=== PATIENT | female | born 1945 | race Caucasian/White ===

== ENCOUNTER 2018-01-23 12:00 | Outpatient (CLI) | payer MEDICARE, OTHER ==
[2018-01-23 12:32] LABS: Hemoglobin 12.8 g/dL (12.0-16.0); Mean Corpuscular HGB CONC 33.1 g/dL (32.0-36.0); Mean Corpuscular Hemoglobin 28.5 pg (27.0-31.0); Mean Platelet Volume 8.2 fL (7.4-10.4); Platelet Count 210 thou/uL (130-400); Red Blood Cell (RBC) Count 4.48 mill/uL (4.20-5.40); White Blood Cell (WBC) Count 8.1 thou/uL (4.8-10.8)
[2018-01-23 12:52] LABS: Anion Gap 11 mmol/L (10-20); BUN (Urea Nitrogen) 32 mg/dL (9.8-20.1); Calc. Creatinine Clearance 0 mL/min (70-130); Carbon Dioxide 25 mmol/L (23-31); Chloride 109 mmol/L (98-107); Estimated GFR-MDRD 40; Glucose 112 mg/dL (83-110); Potassium 4.6 mmol/L (3.5-5.1); Sodium 140 mmol/L (136-145)
== END 2018-01-23 12:01 | disposition home or self-care (01) ==
LOC: LABBT 12:00
PROVIDERS: ATTEND Urology
DX: Z01.818 Encounter for other preprocedural examination (principal); N39.41 Urge incontinence
CPT/HCPCS: 80048; 85027

== ENCOUNTER 2018-01-30 08:46 | Day surgery (SDC) | payer MEDICARE, OTHER ==
[2018-01-23 12:22] VITALS: BMI 35.9
[~2018-01-30 08:46] MED LIST: Lidocaine 1% PF 5 ML VIAL ONE; Ondansetron HCl/PF 4 MG/2 ML Vial ONE; PROPOFOL 200 MG/20 ML VIAL ONE
[2018-01-30] MEDS ORDERED: CEFAZOLIN/Water 2 GM/20 ML SYRINGE ONE (09:08)
[2018-01-30] MEDS ORDERED: Bupivacaine 0.25% HCL 30 ML VIAL ONE (09:54)
[2018-01-30] MEDS ORDERED: Lidocaine 1% (PF) 30 ML VIAL ONE (09:56)
[2018-01-30] MEDS ORDERED: Iopamidol 0 ML ONE (09:56)
[2018-01-30] MEDS ORDERED: Fentanyl 100 MCG/2 ML VIAL ONE (10:01)
--- NOTE | 2018-01-30 16:35 | OP ---
DATE OF SERVICE: 01/30/2018. PREOPERATIVE DIAGNOSIS: Stress incontinence. POSTOPERATIVE DIAGNOSIS: Stress incontinence. PROCEDURE PERFORMED: Cystoscopy with urethral bulking agent injection of coaptite. SURGEON: Dr. Ledezma. ANESTHESIA: Monitored anesthesia care with IV sedation and local anesthetic using 10 mL of Marcaine. COMPLICATIONS: No. SPECIMENS: No. DRAINS: Remaining none. ESTIMATED BLOOD LOSS: No. INDICATIONS: The patient is a 72-year-old female who was followed in the office for mixed incontinence specifically bothersome with stress and she had intrinsic sphincter deficiency and set up for urethral bulking. TECHNIQUE: The patient was brought to the room by Anesthesia, lying table in supine position. After receiving IV sedation, her perineum was prepped and draped in a sterile fashion and her legs were in lithotomy. Then a total of 10 mL of Marcaine were injected in a periurethral block, 5 on each side. A 17- Namibian cystoscope entered the urethra and the bladder and inspected the bladder and it was shown to be without lesions and it was pulled back to the bladder neck where the needle was exposed and then retracted the scope back and injected the needle into the left mid urethral space and advanced with a total of 1 mL of coaptite was injected to that area. After waiting for 10 seconds, the needle was removed. This was repeated on the right. The placement was very good, in that it was not too superficial and did not appear to go into the bladder by past-pointing the needle. So with the bladder significantly full, the patient was further awakened and reported a full bladder. Significant cough resulted in no leakage. I filled her up even a little more, and again, no leakage was noted. At this point with a total of 2 mL of coaptite injected, adequate injection was complete. The scope was removed, and a 12-Namibian red rubber catheter was used to drain the bladder. The patient was fully awakened and transferred to the PACU in stable condition. [facility]
== END 2018-01-30 15:05 | disposition home or self-care (01) ==
LOC: SDC 08:46
PROVIDERS: ATTEND Urology
PROC: 0TVD8ZZ Restriction of Urethra, Via Natural or Artificial Opening Endoscopic (ICD-10-PCS; principal; 2018-01-30)
DX: N39.46 Mixed incontinence (principal); R35.1 Nocturia; N81.6 Rectocele; K21.9 Gastro-esophageal reflux disease without esophagitis; E11.9 Type 2 diabetes mellitus without complications; E78.5 Hyperlipidemia, unspecified; I10 Essential (primary) hypertension; Z79.84 Long term (current) use of oral hypoglycemic drugs; Z79.82 Long term (current) use of aspirin; Z79.899 Other long term (current) drug therapy; Z88.4 Allergy status to anesthetic agent; Z88.1 Allergy status to other antibiotic agents; Z88.8 Allergy status to other drugs, medicaments and biological substances
CPT/HCPCS: 51715; L8606; J2001; J2405; J2704; J3010; S0020

== ENCOUNTER 2018-07-19 14:00 | Inpatient (IN) | payer MEDICARE, OTHER ==
[2018-07-19 14:53] VITALS: BMI 37.5
[2018-07-26] MEDS ORDERED: Vancomycin HCl 1.5 GM in Sodium Chloride 0.9% 250 ML 300 ML IVPB SCH (08:00)
[2018-07-26] MEDS ORDERED: Fentanyl 100 MCG/2 ML VIAL ONE (08:12)
[2018-07-26] MEDS ORDERED: Midazolam HCl 2 mg/2 ml Vial ONE (08:12)
[2018-07-26] MEDS ORDERED: Levofloxacin 500 mg/D5W 100 ml Premix Bag ONE (08:33)
[2018-07-26] MEDS ORDERED: Ropivacaine 0.2% 550 ML 550 ML NERVE BLCK SCH (08:50)
[2018-07-26] MEDS ORDERED: Promethazine HCl 25 MG/ML VIAL IM PRN ×2 (08:50→11:38)
[2018-07-26] MEDS ORDERED: Ondansetron PF 4 MG/2 ML Vial IVP PRN ×2 (08:50→11:56)
[2018-07-26] MEDS ORDERED: traMADol HCl 50 MG TAB PO PRN ×4 (08:50→11:56)
[2018-07-26] MEDS ORDERED: Zolpidem Tartrate 5 MG TAB PO PRN (08:50)
[2018-07-26] MEDS ORDERED: Fentanyl 100 MCG/2 ML VIAL IV PRN (08:51)
[2018-07-26] MEDS ORDERED: Promethazine HCl 25 MG/ML VIAL SLOW IVP PRN (11:38)
[2018-07-26] MEDS ORDERED: Ondansetron HCl/PF 4 MG/2 ML Vial IVP PRN (11:38)
--- NOTE | 2018-07-26 11:44 | OP ---
PREOPERATIVE DIAGNOSIS: Painful hardware and failed rotator cuff repair with rotator cuff arthropath y, left shoulder. POSTOPERATIVE DIAGNOSIS: Painful hardware and failed rotator cuff repair with rotator cuff arthropat hy, left shoulder. PROCEDURE: Open reverse total shoulder arthroplasty, open biceps tenodesis and hardware removal of t he left humerus. SURGEON: Oc Mccray M.D. ROLL CLEANER: Palomo Ramirez PA-C. BLOOD LOSS: About 200 mL. SPECIMEN: None. DRAINS: None. COMPLICATIONS: None. IMPLANTS USED: Tornier, [employer] reverse total shoulder, a 0 degree high offset tray with a 6 mm poly and 3B stem of the flex type stem, a convertible stem. The glenosphere was 29 mm baseplate w ith a 26 and 29 locking screw and a 29 bone screw. PROCEDURE IN DETAIL: The patient was taken to the operating where general anesthesia was induced. S he received vancomycin and gentamicin preoperatively due to multiple drug allergies. Left arm was pr epped and draped in the usual sterile fashion. I made a standard deltopectoral approach. Deltopecto ral was very scarred due to previous open surgery. I was able to open up the deltopectoral interval. I got a retractor underneath the conjoint tendon, opened up the subdeltoid bursa and mobilized that as best as possible. There was a great deal of scarring and I took down the subscapularis and tagge d the biceps tendon for later repair. The biceps was amputated at the superior glenoid tubercle. Th e remainder of the rotator cuff was completely gone. I dislocated the shoulder. I had removed 7 scr ews to get a complete cut of the proximal humerus. Once the screws were removed, I cut the proximal humerus. Some of the screws were removed after the humerus was cut, I had to do this sequentially wi th osteotomes to remove the hardware. Stem was broached and a temporary metaphysis protector was gerardo aleida. The glenoid was exposed circumferentially. Labrum was removed. I drilled a hole slightly infe rior to the center. I reamed the glenoid concentrically and removed bone spurs peripherally. I then used a slightly larger drill centrally, placed 29 mm baseplate screws as described. I had good purc hase with three screws, posterior screw was very short and I did not use that. Glenosphere was deplo yed, screw was tightened without difficulty. Went back and sized the metaphysis and the polyethylene as described and this appeared to be stable throughout a range of motion. Trials were removed. Irr igation performed and placed drill holes for cottony Dacron suture. Flex stem was impacted in place along the metaphysis and polyethylene. The shoulder was reduced once again checked for stability. T here was good stability. Subscap was repaired with cottony Dacron suture. Irrigation performed agai n. Deltopectoral was closed with 2-0 Vicryl, the skin was closed with 2-0 Vicryl and danyelle and delicia rile dressings applied. The patient placed in a splint.
[2018-07-26] MEDS ORDERED: Ondansetron ODT 4 MG TAB PO PRN (11:56)
[2018-07-26] MEDS ORDERED: diphenhydrAMINE 50 MG CAP PO PRN (11:56)
[2018-07-26] MEDS ORDERED: Acetaminophen 325 MG TAB PO PRN ×2 (11:56→12:35)
[2018-07-26] MEDS ORDERED: Bisacodyl 10 MG SUPP PR PRN (11:56)
[2018-07-26] MEDS ORDERED: Methocarbamol 1 GM/10 ML VIAL SLOW IVP PRN (11:56)
[2018-07-26] MEDS ORDERED: Milk Of Magnesia 30 ML UDCUP PO PRN (11:56)
[2018-07-26] MEDS ORDERED: Famotidine/PF 20 mg/2ml Vial SLOW IVP SCH (12:00)
[2018-07-26] MEDS ORDERED: Ketorolac Tromethamine 30 MG/ML VIAL IVP SCH ×2 (12:00)
[2018-07-26] MEDS ORDERED: Famotidine 20 MG TAB PO SCH (12:00)
[2018-07-26] MEDS ORDERED: Acetaminophen/Codeine 30-300mg Tablet PO PRN ×2 (12:01)
[2018-07-26] MEDS ORDERED: Ropivacaine 0.5% HCl/PF (150 MG/30 ML VIAL) ONE (13:17)
[2018-07-26] MEDS ORDERED: Ropivacaine 0.2% HCl/PF (40 MG/20 ML VIAL) ONE (13:17)
[2018-07-26] MEDS ORDERED: Vecuronium 10 MG VIAL ONE (14:50)
[2018-07-26] MEDS ORDERED: Glycopyrrolate 0.2 MG/ML 5 ML SYRINGE ONE (14:50)
[2018-07-26] MEDS ORDERED: Ondansetron PF 4 MG/2 ML Vial ONE (14:50)
[2018-07-26] MEDS ORDERED: Dexamethasone 20 MG/5 ML VIAL ONE (14:50)
[2018-07-26] MEDS ORDERED: Lidocaine 1% PF 5 ML VIAL ONE (14:50)
[2018-07-26] MEDS ORDERED: PHENYLEPHRINE-NS 100 MCG/ML 10 ML SYRINGE ONE (14:50)
[2018-07-26] MEDS ORDERED: PROPOFOL 200 MG/20 ML VIAL ONE (14:50)
--- NOTE | 2018-07-26 14:56 | RAD ---
RADIOGRAPH LEFT SHOULDER 1 VIEW: Date: 07/26/18 HISTORY: 73-year-old female with left shoulder pain, status post surgery. FINDINGS: The modoc humeral head has been surgically resected. There is a metallic prosthesis anchored to the glenoid by screws. This articulates with another metallic prosthesis component with stem that reaches the proximal humeral metadiaphysis. There are skin danyelle. IMPRESSION: Status post total left shoulder glenohumeral joint replacement arthroplasty. POS: [facility]
[2018-07-26] MEDS: Acetaminophen 500 MG TAB PO SCH ×3 (15:07→23:07)
[2018-07-26] MEDS: Ketorolac Tromethamine 30 MG/ML VIAL IVP SCH ×2 (15:15→21:03)
[2018-07-26] MEDS: Sodium Chloride 0.9% 1,000 ML IV SCH (15:18)
[2018-07-26] MEDS ORDERED: Aspirin 81 mg Enteric Coated Tablet PO SCH (21:00)
[2018-07-26] MEDS ORDERED: Vancomycin HCl 1 GM in Premix Bag 1 BAG IVPB SCH (21:00)
[2018-07-26] MEDS: Famotidine 20 MG TAB PO SCH (21:02)
[2018-07-26] MEDS: Famotidine/PF 20 mg/2ml Vial SLOW IVP SCH (21:03)
[2018-07-26] MEDS ORDERED: Insulin Regular 300 UNITS/3 ML VIAL SC PRN (22:45)
[2018-07-26] MEDS ORDERED: Dextrose 50% Abboject 50 ML SYRINGE IVP PRN (22:45)
[2018-07-26] MEDS ORDERED: Dextrose 5% in Water 1,000 ML IV PRN (22:45)
[2018-07-27] MEDS: Sodium Chloride 0.9% 1,000 ML IV SCH (03:36)
[2018-07-27] MEDS: Acetaminophen 500 MG TAB PO SCH ×2 (06:00→13:00)
[2018-07-27] MEDS: Ketorolac Tromethamine 30 MG/ML VIAL IVP SCH (06:01)
[2018-07-27] MEDS ORDERED: Fluticasone Propionate Nasal Spray 16 gm Bottle NASAL PRN (07:30)
[2018-07-27] MEDS ORDERED: metFORMIN 500 MG TAB PO SCH ×2 (08:00→17:00)
[2018-07-27] MEDS ORDERED: Pregabalin 75 MG CAP PO SCH (09:00)
[2018-07-27] MEDS ORDERED: Multivit, Therapeutic 1 TAB PO SCH (09:00)
[2018-07-27] MEDS ORDERED: Hydrochlorothiazide 25 MG TAB PO SCH (09:00)
[2018-07-27] MEDS ORDERED: diphenhydrAMINE 25 MG CAP PO SCH (09:00)
[2018-07-27] MEDS ORDERED: Aspirin 325 mg Enteric Coated Tablet PO SCH (09:00)
[2018-07-27] MEDS: Famotidine 20 MG TAB PO SCH (09:02)
[2018-07-27] MEDS: Famotidine/PF 20 mg/2ml Vial SLOW IVP SCH (09:06)
--- NOTE | 2018-07-27 10:58 | CON ---
DATE OF CONSULTATION: 07/27/2018. CONSULTING PHYSICIAN: Dr. Mccray. REASON FOR CONSULTATION: Medical management of diabetes, heart disease perioperatively. HISTORY OF PRESENT ILLNESS: This patient is a 73-year-old female who has had a couple of prior rotator cuff surgeries with some chronic pain and hardware issues. She has subsequently come back and had reversed hemiarthroplasty of the left shoulder. The patient states she is actually doing well today. She reports that she is actually having less pain and her rotator cuff surgeries are thus far. She did have an episode of high blood sugar overnight and did ultimately receive a dose of insulin and blood sugars are better this morning. The patient does report a minor cough, which I witnessed during our conversation. She states that it is simply some mild irritation of her throat from the surgery. It is nonproductive. PAST MEDICAL HISTORY: Notable for diabetes mellitus, hypertension, hyperlipidemia, coronary artery disease, and sleep apnea on CPAP. PAST SURGICAL HISTORY: Urethral bulking, left knee arthroplasty, back surgery x3, right knee arthroplasty, rotator cuff, left shoulder x2, total abdominal hysterectomy. FAMILY HISTORY: Father had a heart attack and at 63. Mother at 42 with apparent childbirth complications. SOCIAL HISTORY: The patient is a nonsmoker, nondrug user. She is . ALLERGIES: CEFACLOR, HYDROCODONE, BACTRIM, LEVAQUIN, LIDOCAINE. CURRENT MEDICATIONS: At home include, Lansoprazole 30 mg every day, Synthroid 100 mcg every day, Zetia 10 mg every day, metformin 1000 mg b.i.d., calcium 500 mg every day, Lyrica 150 mg b.i.d., Hydrochlorothiazide 12.5 every day, aspirin 325 every day, Lipitor 40 mg every day, Nasonex spray 2 spray daily in each nostril, Benicar 20 mg daily, magnesium oxide 400 mg 1 p.o. daily. PHYSICAL EXAMINATION: VITAL SIGNS: Temperature 98.2, pulse 80, respirations 16, O2 sat 91% on room air, blood pressure is 129/74. GENERAL APPEARANCE: Age appropriate female, slightly obese. She is in no distress. She is awake, alert, oriented, pleasant, cooperative. CARDIOVASCULAR: Heart is regular rate and rhythm without murmurs, gallops or rubs. LUNGS: Clear to auscultation bilaterally. ABDOMEN: Soft, nontender, nondistended, positive bowel sounds, no masses, no organomegaly. EXTREMITIES: Left upper extremity is in a sling. Lower extremities have sequential compression devices in place and there is no significant edema. LABORATORY DATA: Blood sugar last night was 307, this morning 139. Lab work done on 07/19/2018 reveals a creatinine of 1.3, which is consistent with her baseline giving a GFR of 40. Hemoglobin A1c in February was 6.5 and a CBC was normal. ASSESSMENT AND PLAN: 1. Status post left shoulder hemiarthroplasty, doing well. Continue postop orders per Ortho. 2. Diabetes mellitus. We will resume the patient's metformin. She has sliding scale in place. We will change her diet to carb consistent and q.a.c. and at bedtime Accu-Cheks. 3. Hypothyroidism. We will continue with her usual home medication regimen including the levothyroxine at 100 mcg p.o. daily. 4. Hyperlipidemia. Continue the atorvastatin and Zetia. 5. Hypertension. Continue the Benicar and hydrochlorothiazide. 6. Mild cough, appears to be relatively benign. Continue to monitor. MTDD
[2018-07-27 11:32] VITALS: BP 123/77; TEMP 97.9
[2018-07-27] MEDS ORDERED: Ezetimibe 10 MG TAB PO SCH (21:00)
[2018-07-27] MEDS ORDERED: Magnesium Oxide 400 MG TAB PO SCH (21:00)
[2018-07-27] MEDS ORDERED: Atorvastatin Calcium 40 MG TAB PO SCH (21:00)
[2018-07-27] MEDS ORDERED: Calcium Carbonate + Vit D 1 TAB PO SCH (21:00)
[2018-07-28] MEDS ORDERED: Levothyroxine Sodium 100 MCG TAB PO SCH (06:00)
--- NOTE | 2018-07-30 14:20 | DIS ---
DATE OF ADMISSION: 07/26/2018 DATE OF DISCHARGE: 07/27/2018 POSTOPERATIVE DIAGNOSIS: Painful hardware and failed rotator cuff repair with rotator cuff arthropat hy of left shoulder. POSTOPERATIVE DIAGNOSIS: Painful hardware and failed rotator cuff repair with rotator cuff arthropat hy of left shoulder. PROCEDURE: The patient underwent an open reverse total shoulder arthroplasty, biceps tenodesis and h ardware removal of the left humerus. HOSPITAL COURSE: Hospital stay is grossly unremarkable. The patient left the next day. DISCHARGE CONDITION: Good/stable. DISPOSITION: Home with family. FOLLOWUP: Followup would be in 10-14 days or sooner if there are problems or concerns. DISCHARGE MEDICATIONS: Given with usage instructions.
== END 2018-07-27 14:37 | disposition home or self-care (01) | DRG 483 ==
LOC: SURG A 07-26 07:36
PROVIDERS: ADMIT Orthopaedic Surgery; ATTEND Orthopaedic Surgery
PROC: 0RRK00Z Replacement of Left Shoulder Joint with Reverse Ball and Socket Synthetic Substitute, Open Approach (ICD-10-PCS; principal; 2018-07-26)
PROC: 0PPD04Z Removal of Internal Fixation Device from Left Humeral Head, Open Approach (ICD-10-PCS; 2018-07-26)
DX: T84.84XA Pain due to internal orthopedic prosthetic devices, implants and grafts, initial encounter (principal); M12.812 Other specific arthropathies, not elsewhere classified, left shoulder; E11.9 Type 2 diabetes mellitus without complications; G47.30 Sleep apnea, unspecified; K21.9 Gastro-esophageal reflux disease without esophagitis; I10 Essential (primary) hypertension; E78.5 Hyperlipidemia, unspecified; E03.9 Hypothyroidism, unspecified; Z96.653 Presence of artificial knee joint, bilateral; Z88.1 Allergy status to other antibiotic agents; Z88.5 Allergy status to narcotic agent; Z88.8 Allergy status to other drugs, medicaments and biological substances; Z79.84 Long term (current) use of oral hypoglycemic drugs; Z79.82 Long term (current) use of aspirin; Z79.899 Other long term (current) drug therapy
CPT/HCPCS: 36416; A4306; G8978-GP-CK; G8979-GP-CJ; J1100; J1885; J1956; J2001; J2250; J2405; J2704; J2795; J3010; J3370; J7050; S0028

== ENCOUNTER 2018-07-19 14:05 | Outpatient (CLI) | payer MEDICARE, OTHER ==
[2018-07-19 15:55] LABS: #Basophils 0.1 thou/uL (0.0-0.2); #Eosinphils 0.4 thou/uL (0.0-0.7); #Lymphocytes 2.2 thou/uL (1.20-3.40); #Monocytes 0.7 thou/uL (0.11-0.59); #Neutrophils 4.2 thou/uL (1.40-6.50); %Basophils 0.9 % (0.0-1.0); %Eosinophils 5.2 % (0.0-10.0); %Lymphocytes 29.4 % (21.0-51.0); %Monocytes 9.8 % (0.0-10.0); %Neutrophils 54.8 % (42.0-75.0); Hemoglobin 12.5 g/dL (12.0-16.0); Mean Corpuscular HGB CONC 33.4 g/dL (32.0-36.0); Mean Corpuscular Hemoglobin 29.6 pg (27.0-31.0); Mean Corpuscular Volume 88.7 fL (78.0-98.0); Mean Platelet Volume 8.8 fL (7.4-10.4); Platelet Count 223 thou/uL (130-400); RBC Distribution Width 12.9 % (11.5-14.5); White Blood Cell (WBC) Count 7.6 thou/uL (4.8-10.8)
[2018-07-19 16:00] LABS: PTT 29.8 SEC (22.9-36.1); Prothrombin Time 13.4 SEC (12.0-14.7)
[2018-07-19 16:07] LABS: Bilirubin Negative (Negative); Blood, Urine Negative (Negative); Clarity CLEAR (Clear); Glucose, Urine (Dipstick) Negative (Negative); Leukocyte Small (Negative); Nitrite Negative (Negative); Protein, Urine (Dipstick) Negative (Neg-Trace); Specific Gravity, Urine 1.019 (1.002-1.036); Urobilinogen 0.2 mg/dL (0.2-1.0)
[2018-07-19 16:09] LABS: Bacteria/HPF None Seen HPF (None Seen); Hyaline Casts/LPF 0-3 HYALINE CAST LPF (0-3 Hyaline); Pathc Cast-AUWi Flag 0.14 (0-2.49); RBC/HPF 0-3 HPF (0-3); Squamous Epithelial 0-3 HPF (0-3); WBC/HPF 0-3 HPF (0-3)
[2018-07-19 16:14] LABS: Anion Gap 13 mmol/L (10-20); BUN (Urea Nitrogen) 25 mg/dL (9.8-20.1); Calc. Creatinine Clearance 0 mL/min (70-130); Calcium 9.8 mg/dL (7.8-10.44); Carbon Dioxide 25 mmol/L (23-31); Chloride 106 mmol/L (98-107); Estimated GFR-MDRD 40; Glucose 109 mg/dL (83-110); Potassium 4.5 mmol/L (3.5-5.1); Sodium 139 mmol/L (136-145)
--- NOTE | 2018-07-19 17:48 | RAD ---
CHEST PA AND LATERAL TWO VIEWS: 07/19/18 HISTORY: 63-year-old female for presurgical evaluation for 07/26/18. Minimal linear parenchymal changes in the lung bases and lower lobes near from prior 2011 study, hav ing more the appearance of chronic change or minimal subsegmental atelectasis. Heart size is within n ormal limits. Multiple surgical changes involving both shoulders. No confluent pneumonia or overt ed yessenia. IMPRESSION: Horizontal linear and parenchymal changes in both lower lobes and bases having more the appearance of subsegmental atelectasis or chronic change. No pneumothorax or pleural effusion or other acute proce ss. Atherosclerosis of the aorta. POS: [facility]
--- NOTE | 2018-07-20 16:35 | EKG ---
Test Reason : Blood Pressure : / mmHG Vent. Rate : 068 BPM Atrial Rate : 068 BPM P-R Int : 216 ms QRS Dur : 086 ms QT Int : 398 ms P-R-T Axes : 045 042 035 degrees QTc Int : 423 ms Sinus rhythm with 1st degree A-V block Low voltage QRS Cannot rule out Anterior infarct , age undetermined Abnormal ECG When compared with ECG of 03-AUG-2011 11:58, Minimal criteria for Anterior infarct are now Present Confirmed by DR. Toshia GALARZA ([id number]) on 07/20/2018 4:35:28 PM Referred By: RONEY Confirmed By:DR. Toshia GALARZA
== END 2018-07-19 14:06 | disposition home or self-care (01) ==
LOC: LABBT 14:05
PROVIDERS: ATTEND Orthopaedic Surgery
DX: Z01.818 Encounter for other preprocedural examination (principal); M19.012 Primary osteoarthritis, left shoulder; M75.102 Unspecified rotator cuff tear or rupture of left shoulder, not specified as traumatic
CPT/HCPCS: 71046; 80048; 81001; 85025; 85610; 85730; 87081; 93005; 93010

== ENCOUNTER 2019-06-25 10:53 | Outpatient (CLI) | payer MEDICARE, OTHER ==
--- NOTE | 2019-06-25 11:36 | RAD ---
LUMBAR SPINE 2 VIEWS: HISTORY: Lumbar fusion. FINDINGS: Five lumbar-type vertebral bodies. Severe loss of disk space height at L1-L2 and L2-L3. There is di sk prosthesis at L3-L4, L4-L5, and L5-S1. There is diffuse bone demineralization. No definite fract ure. Spondylolisthesis: 3.8 mm of retrolisthesis of L2 upon L3, 3.7 mm anterolisthesis of anterolisthesis of L4 upon L5, 4.2 mm anterolisthesis of L5 upon S1. There are bilateral transpedicular screws at t he S1 level. There appears to be perihardware lucency involving the left screw. Posterior bone levi t material is suspected at L3, L4, and L5. Atherosclerosis of the aorta is noted. IMPRESSION: 1. Spondylolisthesis and fusion changes as above. 2. Severe degenerative change with loss of disk space height involving the upper lumbar spine. POS: [facility]
== END 2019-06-25 10:54 | disposition home or self-care (01) ==
LOC: TBSIIMAG 10:53
PROVIDERS: ATTEND Neurological Surgery
DX: M54.5 Low back pain (principal); M43.16 Spondylolisthesis, lumbar region; M47.816 Spondylosis without myelopathy or radiculopathy, lumbar region; Z98.1 Arthrodesis status
CPT/HCPCS: 72100

== ENCOUNTER 2019-07-10 07:24 | Day surgery (SDC) | payer MEDICARE, OTHER ==
[2019-07-10 08:48] VITALS: BMI 36.6
--- NOTE | 2019-07-10 09:48 | RAD ---
LUMBAR MYELOGRAM: HISTORY: Lumbar radiculopathy. FINDINGS: Two view service desk director lumbar spine radiograph demonstrates five lumbar type vertebrae. Lumbar spine vertebra l body height is maintained. No fracture. Disc prostheses at L3-L4, L4-L5 and L5-S1. Bilateral transpedicular screws at S1. There does appear to be perihardware lucency involving both transpedicul ar screws. Hypertrophy and bone graft material is noted from L3 through L5. Vacuum disc phenomenon at L1-L2 and L2-L3. Endplate sclerosis and osteophyte formation is noted. No fracture. Spondylolisthesis: Grade 1 retrolisthesis of L1 upon L2. Grade 1 retrolisthesis of L3 upon L4. Grade 1 anterolisthesis of L4 upon L5. Grade 1 anterolisthesis of L5 upon S1. Atherosclerosis of the aorta. Successful lumbar puncture. A total of 9 cc of Isovue-M 200 contrast was administered intrathecally. No immediate or post procedure complications. TECHNIQUE: Consent obtained to perform a lumbar puncture for lumbar myelogram. The patient's back was evaluated. Initially the L3-L4 level was attempted. However access into the CSF space could not be obtained. Therefore an attempt at the L4-L5 level was made which was successful. There was prompt flow of clear CSF into the hub of the needle. Via a short tubing catheter a total of 9 cc of Isovue-M 200 contrast was administered intrathecally. No immediate or post procedure complications. IMPRESSION: Successful lumbar puncture for lumbar myelogram. Transcribed Date/Time: 07/10/2019 9:59 AM
[2019-07-10 10:13] VITALS: BP 159/80; TEMP 97.8
--- NOTE | 2019-07-10 11:23 | CT ---
CT LUMBAR SPINE POST MYELOGRAM: HISTORY: Lumbar radiculopathy. COMPARISON: None. CORRELATION: Noncontrast lumbar spine CT from 04/16/2014. FINDINGS: There are tracks from previous bilateral transpedicular screws at L4 and L5. There are bilateral barboza spedicular screws at S1. No significant perihardware lucency. There is extensive posterior bone graft material, left and right posterior elements, from L4 through S1. Five lumbar type vertebrae. Allegra mbar spine vertebral body height is maintained. No fracture. Vacuum disc phenomenon at T10-T11 through L2-L3. Endplate sclerosis at L1-L2 and L2-L3 is noted. Disc prostheses at L3-L4, L4-L5 and L5 -S1. Spondylolisthesis: L1-L2: 3.3 mm of retrolisthesis L2-L3: 2.4 mm of retrolisthesis L5-S1: 6.7 mm of anterolisthesis Appropriate attenuation of the visualized solid organs. Hypodensities in the liver are compatible wit h hepatic cysts. No paraspinal mass, lymphadenopathy or hematoma. Atherosclerosis of a nonaneurysmal aorta. The conus medullaris terminates at the mid L1 level. Coronal reformatted images demonstrate no significant scoliotic curvature. The visualized sacral ala are intact. Vacuum joint phenomenon in the left and right sacroiliac joint space. T10-T11: Moderate central canal stenosis secondary to a broad based disc bulge and posterior element hypertrophy. Moderate bilateral neural foraminal narrowing. T11-T12: Broad based disc bulge, ligamentum flavum thickening and facet hypertrophy result in moderat e central canal stenosis. Moderate bilateral neural foraminal narrowing. T12-L1: Broad based disc bulge results in mild central canal stenosis. Mild to moderate bilateral ford ral foraminal narrowing. L1-L2: Vacuum disc phenomenon. Left subarticular disc protrusion. There is contact upon and displacem ent of the traversing left L2 nerve root. Mild stenosis of the thecal sac. Moderate to severe right and severe left neural foraminal narrowing. L2-L3: Vacuum disc phenomenon. Broad based disc bulge, ligamentum flavum thickening and facet hypertr ophy result in moderate central canal stenosis. Moderate to severe bilateral neural foraminal narrowing. L3-L4: Disc prosthesis. Mild narrowing of the left subarticular zone. No significant central canal st enosis. Moderate right neural foraminal narrowing. Mild to moderate left neural foraminal narrowing. L4-L5: Disc prosthesis. No significant central canal stenosis. Bilaterally neural foramina are patent . L5-S1: Disc prosthesis. No significant central canal stenosis. Bilaterally neural foramina are patent . IMPRESSION: Post surgical changes and degenerative changes of the lumbar spine as detailed above. Transcribed Date/Time: 07/10/2019 11:32 AM
[2019-07-10] MEDS ORDERED: FLU VACC TS2019-20(65YR UP)/PF 180 MCG/0.5 ML SYRINGE IM ONE (12:00)
== END 2019-07-10 10:01 | disposition home or self-care (01) ==
LOC: RAD 07:24
PROVIDERS: ATTEND Neurological Surgery
PROC: B01B1ZZ Fluoroscopy of Spinal Cord using Low Osmolar Contrast (ICD-10-PCS; principal; 2019-07-10)
DX: M54.16 Radiculopathy, lumbar region (principal); M48.04 Spinal stenosis, thoracic region; M48.05 Spinal stenosis, thoracolumbar region; M48.061 Spinal stenosis, lumbar region without neurogenic claudication; G47.33 Obstructive sleep apnea (adult) (pediatric); E11.9 Type 2 diabetes mellitus without complications; I10 Essential (primary) hypertension; I25.10 Atherosclerotic heart disease of native coronary artery without angina pectoris; E78.5 Hyperlipidemia, unspecified; Z79.82 Long term (current) use of aspirin; Z79.899 Other long term (current) drug therapy; Z88.1 Allergy status to other antibiotic agents; Z88.2 Allergy status to sulfonamides; Z88.5 Allergy status to narcotic agent; Z88.8 Allergy status to other drugs, medicaments and biological substances; Z98.1 Arthrodesis status; Z99.89 Dependence on other enabling machines and devices
CPT/HCPCS: 62304; 72132

== ENCOUNTER 2021-04-26 11:37 | Outpatient (CLI) | payer MEDICARE | END 2021-04-26 11:38 | disposition home or self-care (01) | LOC: BICMAMMO 11:37 | PROVIDERS: ATTEND Family Medicine | DX: Z12.31 Encounter for screening mammogram for malignant neoplasm of breast (principal) | CPT/HCPCS: 77063; 77067 ==

== ENCOUNTER 2021-09-06 10:13 | Outpatient (CLI) | payer MEDICARE ==
[2021-09-06 11:38] LABS: #Basophils 0.1 10x3/uL (0.0-0.2); #Eosinphils 0.4 10x3/uL (0.0-0.5); #Monocytes 0.7 10x3/uL (0.0-1.1); #Neutrophils 4.4 10x3/uL (1.5-8.4); %Basophils 0.6 % (0.0-2.0); %Eosinophils 4.5 % (0.0-6.0); %Lymphocytes 27.5 % (18.0-47.0); %Monocytes 9.3 % (0.0-10.0); %Neutrophils 57.5 % (40.0-75.0); Hemoglobin 12.4 g/dL (12.0-15.5); Mean Corpuscular Hemoglobin 27.9 pg (27.0-33.0); Mean Corpuscular Volume 87.4 fl (81.6-98.3); Mean Platelet Volume 10.8 fl (7.4-10.4); Platelet Count 220 10x3/uL (150-450); RBC Distribution Width 13.7 % (11.5-14.5); Red Blood Cell (RBC) Count 4.44 10x6/uL (3.90-5.03); White Blood Cell (WBC) Count 7.7 10x3/uL (3.5-10.5)
[2021-09-06 11:52] LABS: Anion Gap 11 mmol/L (10-20); BUN (Urea Nitrogen) 18 mg/dL (9.8-20.1); Calc. Creatinine Clearance 0 mL/min (70-130); Calcium 9.4 mg/dL (7.8-10.44); Carbon Dioxide 26 mmol/L (23-31); Chloride 106 mmol/L (98-107); Glucose 105 mg/dL (83-110); Potassium 4.4 mmol/L (3.5-5.1); Sodium 139 mmol/L (136-145)
[2021-09-06 22:25] LABS: SARS-CoV-2 PCR by NAA Not Detected (NotDetected)
== END 2021-09-06 10:14 | disposition home or self-care (01) ==
LOC: LABBT 10:13
PROVIDERS: ATTEND Orthopaedic Surgery
DX: Z01.818 Encounter for other preprocedural examination (principal); Z20.822 Contact with and (suspected) exposure to COVID-19
CPT/HCPCS: 80048; 85025; 93005; U0003; U0005; 93010

== ENCOUNTER 2021-09-09 06:06 | Observation (INO) | payer MEDICARE ==
[2021-09-09] MEDS ORDERED: Tranexamic Acid 1,000 MG/10 ML VIAL ONE (06:26)
[2021-09-09] MEDS ORDERED: Sodium Chloride 0.9% 100 ML ONE (06:26)
[2021-09-09] MEDS ORDERED: Gentamicin 80 MG/2 ML VIAL ONE (06:26)
[2021-09-09] MEDS ORDERED: Fentanyl 100 MCG/2 ML VIAL ONE ×2 (06:35→07:45)
[2021-09-09] MEDS ORDERED: Midazolam HCl 2 mg/2 ml Vial ONE (06:35)
[2021-09-09] MEDS ORDERED: Lidocaine 1% (PF) 30 ML VIAL ONE (06:35)
[2021-09-09] MEDS ORDERED: Vancomycin 1.5 GRAM/300 ML BAG 1.5 GM in Premix Bag 1 BAG IVPB SCH (06:45)
[2021-09-09] MEDS ORDERED: Gentamicin Sulfate 80 MG in Premix Bag 1 BAG IVPB SCH (07:15)
[2021-09-09] MEDS ORDERED: Glycopyrrolate 0.2 MG/ML 5 ML SYRINGE ONE (07:53)
[2021-09-09] MEDS ORDERED: Lidocaine 1% PF 5 ML VIAL ONE (07:53)
[2021-09-09] MEDS ORDERED: Dexamethasone 20 MG/5 ML VIAL ONE (07:53)
[2021-09-09] MEDS ORDERED: Ropivacaine 0.5% HCl/PF (150 MG/30 ML VIAL) ONE (07:53)
[2021-09-09] MEDS ORDERED: PROPOFOL 200 MG/20 ML VIAL ONE (07:53)
[2021-09-09] MEDS ORDERED: Ketorolac Tromethamine 30 MG/ML VIAL ONE (07:53)
[2021-09-09] MEDS ORDERED: Rocuronium Bromide 10 MG/ML (10ML VIAL) ONE (07:53)
[2021-09-09] MEDS ORDERED: Ondansetron PF 4 MG/2 ML Vial ONE (07:53)
[2021-09-09] MEDS ORDERED: Ropivacaine 2% HCl/PF (20 MG/10 ML VIAL) ONE (07:53)
[2021-09-09] MEDS ORDERED: traMADol HCl 50 MG TAB PO PRN ×4 (07:55→08:00)
[2021-09-09] MEDS ORDERED: oxyCODONE/Acetaminophen 5 mg/325 mg Tablet PO PRN ×2 (07:58)
[2021-09-09] MEDS ORDERED: diphenhydrAMINE 25 MG CAP PO PRN (07:58)
[2021-09-09] MEDS ORDERED: Zolpidem Tartrate 5 MG TAB PO PRN (08:00)
[2021-09-09] MEDS ORDERED: Fentanyl 100 MCG/2 ML VIAL SLOW IVP PRN (08:00)
[2021-09-09] MEDS ORDERED: Ondansetron PF 4 MG/2 ML Vial IVP PRN (08:00)
[2021-09-09] MEDS ORDERED: Promethazine HCl 25 MG/ML VIAL IM PRN ×2 (08:00→08:59)
[2021-09-09] MEDS ORDERED: Ropivacaine 0.2% 550 ML 550 ML NERVE BLCK SCH (08:00)
[2021-09-09] MEDS ORDERED: Phenylephrine 10 MG/ML VIAL ONE (08:11)
[2021-09-09] MEDS ORDERED: Promethazine HCl 25 MG/ML VIAL IVPB PRN (08:59)
[2021-09-09] MEDS ORDERED: PACU-Morphine 4MG/ML VIAL SLOW IVP PRN (08:59)
[2021-09-09] MEDS ORDERED: Dulaglutide [Trulicity] 1.5 MG/0.5 ML Pen.Injctr SC SCH (09:00)
[2021-09-09] MEDS: Losartan 25 MG TAB PO SCH (15:08)
[2021-09-09] MEDS: Aspirin 325 mg Enteric Coated Tablet PO SCH (15:08)
[2021-09-09] MEDS: Pregabalin 75 MG CAP PO SCH ×2 (15:08→21:23)
[2021-09-09] MEDS: Sodium Chloride 0.9% 1,000 ML IV SCH (15:08)
[2021-09-09] MEDS: Ketorolac Tromethamine 30 MG/ML VIAL IVP SCH ×2 (15:09→17:19)
[2021-09-09 15:12] VITALS: BMI 32.7
[2021-09-09] MEDS ORDERED: Vancomycin HCl 1.5 GM in Sodium Chloride 0.9% 250 ML 300 ML IVPB SCH (20:00)
[2021-09-09] MEDS ORDERED: Ezetimibe 10 MG TAB PO SCH (21:00)
[2021-09-09] MEDS ORDERED: Calcium Carbonate 600 MG + Vit D TAB PO SCH (21:00)
[2021-09-09] MEDS ORDERED: Magnesium Oxide 400 MG TAB PO SCH (21:00)
[2021-09-09] MEDS ORDERED: Atorvastatin Calcium 40 MG TAB PO SCH (21:00)
[2021-09-10] MEDS: Sodium Chloride 0.9% 1,000 ML IV SCH (00:51)
[2021-09-10] MEDS: Ketorolac Tromethamine 30 MG/ML VIAL IVP SCH ×3 (00:51→12:05)
[2021-09-10] MEDS ORDERED: Levothyroxine Sodium 100 MCG TAB PO SCH (06:00)
[2021-09-10] MEDS: Pregabalin 75 MG CAP PO SCH (08:39)
[2021-09-10] MEDS: Losartan 25 MG TAB PO SCH (08:39)
[2021-09-10] MEDS: Aspirin 325 mg Enteric Coated Tablet PO SCH (08:39)
[2021-09-10 12:41] VITALS: BP 132/73; TEMP 97.8
== END 2021-09-10 14:28 | disposition home or self-care (01) ==
LOC: SDC 06:06 → SJJU 08:00
PROVIDERS: ADMIT Orthopaedic Surgery; ATTEND Orthopaedic Surgery
PROC: 0RRJ00Z Replacement of Right Shoulder Joint with Reverse Ball and Socket Synthetic Substitute, Open Approach (ICD-10-PCS; principal; 2021-09-09)
PROC: 3E0T3BZ Introduction of Anesthetic Agent into Peripheral Nerves and Plexi, Percutaneous Approach (ICD-10-PCS; 2021-09-09)
DX: M12.811 Other specific arthropathies, not elsewhere classified, right shoulder (principal); E11.9 Type 2 diabetes mellitus without complications; G47.30 Sleep apnea, unspecified; K21.9 Gastro-esophageal reflux disease without esophagitis; I10 Essential (primary) hypertension; E78.5 Hyperlipidemia, unspecified; Z79.82 Long term (current) use of aspirin; Z79.84 Long term (current) use of oral hypoglycemic drugs; Z79.899 Other long term (current) drug therapy; Z88.1 Allergy status to other antibiotic agents; Z88.2 Allergy status to sulfonamides; Z88.5 Allergy status to narcotic agent; Z88.8 Allergy status to other drugs, medicaments and biological substances; Z91.048 Other nonmedicinal substance allergy status; Z96.653 Presence of artificial knee joint, bilateral; Z98.890 Other specified postprocedural states
CPT/HCPCS: 23472; 64416; 97110; 97116 ×2; 97139; 97530 ×2; 98960; A4306; C1713 ×5; C1776 ×2; C1889; 96365; 96366; 96375; 96376; G0378; J1100; J1580; J1885; J2001; J2250; J2370; J2405; J2704; J2795; J3010; J3370; J3490; J7050

== ENCOUNTER 2023-06-01 17:00 | Outpatient (CLI) | payer MEDICARE | END 2023-06-01 17:01 | disposition home or self-care (01) | LOC: SLEEPLAB 17:00 | PROVIDERS: ATTEND Internal Medicine Critical Care Medicine | DX: G47.33 Obstructive sleep apnea (adult) (pediatric) (principal); R06.83 Snoring; G47.10 Hypersomnia, unspecified; I10 Essential (primary) hypertension; G47.00 Insomnia, unspecified; G47.52 REM sleep behavior disorder | CPT/HCPCS: 95810 ==

== ENCOUNTER 2023-09-26 09:30 | Inpatient (IN) | payer MEDICARE ==
[2023-09-27 14:46] LABS: Hematocrit 37.3 % (34.9-44.5); Hemoglobin 12.4 g/dL (12.0-15.5); Mean Corpuscular HGB CONC 33.2 g/dL (32.0-36.0); Mean Corpuscular Hemoglobin 29.7 pg (27.0-33.0); Mean Corpuscular Volume 89.4 fl (81.6-98.3); Mean Platelet Volume 11.3 fl (7.4-10.4); Platelet Count 230 10x3/uL (150-450); RBC Distribution Width 12.9 % (11.5-14.5); Red Blood Cell (RBC) Count 4.17 10x6/uL (3.90-5.03); White Blood Cell (WBC) Count 6.7 10x3/uL (3.5-10.5)
[2023-09-27 14:58] LABS: Anion Gap 14 mmol/L (10-20); BUN (Urea Nitrogen) 17 mg/dL (9.8-20.1); Calc. Creatinine Clearance 0 mL/min (70-130); Calcium 9.2 mg/dL (7.8-10.44); Carbon Dioxide 22 mmol/L (23-31); Chloride 109 mmol/L (98-107); Estimated GFR 43; Glucose 108 mg/dL (83-110); Potassium 4.2 mmol/L (3.5-5.1); Sodium 141 mmol/L (136-145)
[2023-10-05] MEDS ORDERED: Albumin 5% 500 ML ONE (06:20)
[2023-10-05] MEDS ORDERED: Fentanyl 250 MCG/5 ML VIAL ONE ×2 (06:22→09:09)
[2023-10-05] MEDS ORDERED: Midazolam HCl 2 mg/2 ml Vial ONE ×2 (06:22)
[2023-10-05] MEDS ORDERED: Heparin 10,000 UNITS/1 ML VIAL 30,000 UNITS in Sodium Chloride 0.9% 1,000 ML FS SCH (06:45)
[2023-10-05] MEDS ORDERED: Sodium Chloride 0.9% 0 ML ONE (07:14)
[2023-10-05] MEDS ORDERED: Gentamicin 80 MG/2 ML VIAL ONE (07:14)
[2023-10-05] MEDS ORDERED: Vancomycin (BATCH) 1.5 GM/300 ML BAG ONE (07:14)
[2023-10-05] MEDS ORDERED: Sodium Bicarb 50 mEq/50 ML VIAL ONE (07:42)
[2023-10-05] MEDS ORDERED: Heparin 30,000 units/30 ml VIAL ONE (07:42)
[2023-10-05] MEDS ORDERED: Etomidate 40 MG (20 mL) VIAL ONE (07:42)
[2023-10-05] MEDS ORDERED: Lidocaine 2% PF 100 mg/5 ml Syringe ONE (07:42)
[2023-10-05] MEDS ORDERED: Cardioplegic Soln 1,000 ML BAG ONE (07:42)
[2023-10-05] MEDS ORDERED: Vancomycin 1 GM VIAL ONE (07:42)
[2023-10-05] MEDS ORDERED: Thrombin 5000 UNITS/5 ML VIAL ONE (07:42)
[2023-10-05] MEDS ORDERED: Vecuronium 10 MG VIAL ONE (07:42)
[2023-10-05] MEDS ORDERED: Aminocaproic Acid 5 GM/20 ML VIAL ONE (07:42)
[2023-10-05] MEDS ORDERED: Potassium Chloride 60 mEq (30 mL) VIAL ONE (07:42)
[2023-10-05] MEDS ORDERED: Magnesium 5 GM/10 ML VIAL ONE (07:42)
[2023-10-05] MEDS ORDERED: Heparin 5,000 UNITS/ML VIAL ONE (07:42)
[2023-10-05] MEDS ORDERED: Protamine Sulfate 250 MG/25 ML VIAL ONE (07:42)
[2023-10-05] MEDS ORDERED: Papaverine 60 MG/2 ML VIAL ONE (07:42)
[2023-10-05] MEDS ORDERED: Mannitol 12.5 GM/50 ML ONE (07:42)
[2023-10-05] MEDS ORDERED: Calcium Chloride 1 GM/10 ML Abboject SYRINGE ONE (07:42)
[2023-10-05] MEDS ORDERED: PROPOFOL 20 ML ONE (08:08)
[2023-10-05] MEDS ORDERED: Rocuronium Bromide 10 MG/ML (10ML VIAL) ONE (09:12)
[2023-10-05] MEDS ORDERED: PHENYLEPHRINE-NS 100 MCG/ML 10 ML SYRINGE ONE (10:35)
[2023-10-05] MEDS ORDERED: Post-Op Insulin Drip Protocol IVPB SCH (11:26)
[2023-10-05] MEDS ORDERED: Ondansetron PF 4 MG/2 ML Vial IVP PRN (11:26)
[2023-10-05] MEDS ORDERED: fentaNYL 50 mcg/mL 1 mL Vial SLOW IVP PRN ×2 (11:26)
[2023-10-05] MEDS ORDERED: Hetastarch 6% 500 ML 500 ML IVPB PRN (11:26)
[2023-10-05] MEDS ORDERED: Nitroglycerin 50 MG/250 ML BOT 250 ML IVPB PRN (11:26)
[2023-10-05] MEDS ORDERED: niCARdipine 25 MG in Sodium Chloride 0.9% 250 ML 250 ML IVPB PRN (11:26)
[2023-10-05] MEDS ORDERED: Albumin 5% 12.5 GM (250 mL) BOT IVPB PRN ×2 (11:26)
[2023-10-05] MEDS ORDERED: Mag-Al 1200 mg/1200 mg/30 ML UDCUP PO PRN (11:26)
[2023-10-05] MEDS ORDERED: Ipratropium/Albuterol 3 ML NEB NEB PRN (11:26)
[2023-10-05] MEDS ORDERED: Bisacodyl 10 MG SUPP PR PRN (11:26)
[2023-10-05] MEDS ORDERED: hydrALAZINE 20 MG/ML VIAL SLOW IVP PRN (11:26)
[2023-10-05] MEDS ORDERED: DOPamine 400 MG/D5W 250 ML 250 ML IVPB PRN (11:26)
[2023-10-05] MEDS ORDERED: HYDROcodone/Acetaminophen 5/325 mg Tablet PO PRN (11:26)
[2023-10-05] MEDS ORDERED: NOREPINEPHRINE 8 MG/250 ML-D5W 250 ML IVPB PRN (11:26)
[2023-10-05] MEDS ORDERED: Morphine 2 MG/ML VIAL SLOW IVP PRN (11:26)
[2023-10-05] MEDS ORDERED: Bisacodyl 5 MG TAB PO PRN (11:26)
[2023-10-05] MEDS ORDERED: Potassium Chloride 20 MEQ (100 mL) BAG IVPB PRN (11:26)
[2023-10-05 11:29] LABS: Base Excess (BEa) -6.1 mEq/L (-2.0 to +3.0); CO2 Tension 35.9 mmHg (35.0-45.0); Calcium, Ionized (arterial) 1.29 mmol/L (1.12-1.30); Carboxyhemoglobin (COHb) 0.5 gm% (0.0-3.0); Hematocrit-ABG 31 % (36.0-47.0); Hemoglobin (Hb) 10.4 g/dL (12.0-16.0); O2 Tension (PaO2), arterial 83.1 mmHg (> 60.0); Potassium - ABG Lab 4.42 mmol/L (3.70-5.30); pH, Arterial 7.341 (7.35-7.45)
[2023-10-05] MEDS ORDERED: Gentamicin Sulfate 80 MG in Premix 1 BAG IVPB SCH (11:30)
[2023-10-05] MEDS ORDERED: Vancomycin (BATCH) 1.5 GM in Premix 1 BAG IVPB SCH (11:30)
[2023-10-05 11:31] LABS: Puncture Site Arterial Line
[2023-10-05 11:32] LABS: ALV-art Gradient 157.225 mmHg (0-20)
[2023-10-05 11:40] LABS: #Eosinphils 0.4 thou/uL (0.0-0.7); #Monocytes 0.7 thou/uL (0.11-0.59); #Neutrophils 9.2 thou/uL (1.40-6.50); %Basophils 0.3 % (0.0-1.0); %Eosinophils 2.8 % (0.0-10.0); %Lymphocytes 14.5 % (21.0-51.0); %Monocytes 5.9 % (0.0-10.0); %Neutrophils 73.9 % (42.0-75.0); Hematocrit 30.6 % (36.0-47.0); Mean Corpuscular HGB CONC 32.7 g/dL (32.0-36.0); Mean Corpuscular Hemoglobin 30.1 pg (27.0-31.0); Mean Corpuscular Volume 92.2 fl (78.0-98.0); Mean Platelet Volume 11.2 fL (7.4-10.4); RBC Distribution Width 13.1 % (11.5-14.5); Red Blood Cell (RBC) Count 3.32 mill/uL (4.20-5.40); White Blood Cell (WBC) Count 12.4 10x3/uL (4.8-10.8)
[2023-10-05 11:44] LABS: Platelet Count 130 10x3/uL (130-400)
[2023-10-05 11:50] LABS: Anion Gap 9 mmol/L (10-20); BUN (Urea Nitrogen) 17 mg/dL (9.8-20.1); Calc. Creatinine Clearance 72 mL/min (70-130); Calcium 8.8 mg/dL (7.8-10.44); Carbon Dioxide 18 mmol/L (23-31); Chloride 116 mmol/L (98-107); Estimated GFR 66; Glucose 169 mg/dL (83-110); Potassium 4.8 mmol/L (3.5-5.1); Sodium 138 mmol/L (136-145)
[2023-10-05 11:55] LABS: INR-International Normal Ratio 1.4; PTT 29.8 sec (22.9-36.1); Prothrombin Time 16.7 sec (12.0-14.7)
[2023-10-05] MEDS ORDERED: HUMULIN R 100 UNITS in Sodium Chloride 0.9% 100 ML IVPB SCH (12:00)
[2023-10-05] MEDS ORDERED: Glucagon 1 MG/ML KIT SC PRN (12:00)
[2023-10-05] MEDS ORDERED: Dextrose 5% in Water 1,000 ML IV PRN (12:00)
[2023-10-05] MEDS ORDERED: Dextrose 50% Abboject 50 ML SYRINGE SLOW IVP PRN (12:00)
[2023-10-05] MEDS ORDERED: FLU VACC QS2023(65UP)/MF59C/PF 60 MCG/0.5 ML SYRINGE IM ONE (14:00)
[2023-10-05 16:37] LABS: Actual Bicarbonate (HCO3a) 17.5 mEq/L (22-28); Base Excess (BEa) -6.8 mEq/L (-2.0 to +3.0); Calcium, Ionized (arterial) 1.27 mmol/L (1.12-1.30); Carboxyhemoglobin (COHb) 0.7 gm% (0.0-3.0); Hematocrit-ABG 34 % (36.0-47.0); Hemoglobin (Hb) 11.4 g/dL (12.0-16.0); O2 Tension (PaO2), arterial 110.6 mmHg (> 60.0); pH, Arterial 7.369 (7.35-7.45)
[2023-10-05 16:39] LABS: Puncture Site Arterial Line
[2023-10-05 17:11] LABS: Hematocrit 33.7 % (36.0-47.0)
[2023-10-05] MEDS: HYDROcodone/Acetaminophen 5/325 mg Tablet PO PRN (18:46)
[2023-10-05] MEDS: Pregabalin 75 MG CAP PO SCH (20:30)
[2023-10-05] MEDS: Famotidine/PF 20 mg/2ml Vial SLOW IVP SCH (20:32)
[2023-10-05] MEDS ORDERED: Vancomycin 1 GM in Premix 1 BAG IVPB SCH (21:00)
[2023-10-05] MEDS ORDERED: Atorvastatin Calcium 10 MG TAB PO SCH (21:00)
[2023-10-06 04:19] LABS: #Basophils 0.1 thou/uL (0.0-0.2); #Monocytes 1.2 thou/uL (0.11-0.59); #Neutrophils 8.7 thou/uL (1.40-6.50); %Basophils 0.4 % (0.0-1.0); %Eosinophils 0.2 % (0.0-10.0); %Lymphocytes 12.9 % (21.0-51.0); %Monocytes 10.5 % (0.0-10.0); %Neutrophils 75.6 % (42.0-75.0); Hematocrit 31.7 % (36.0-47.0); Hemoglobin 10.2 g/dL (12.0-16.0); Mean Corpuscular HGB CONC 32.2 g/dL (32.0-36.0); Mean Corpuscular Hemoglobin 29.7 pg (27.0-31.0); Mean Corpuscular Volume 92.2 fl (78.0-98.0); Mean Platelet Volume 11.5 fL (7.4-10.4); Platelet Count 149 10x3/uL (130-400); RBC Distribution Width 13.5 % (11.5-14.5); Red Blood Cell (RBC) Count 3.44 mill/uL (4.20-5.40); White Blood Cell (WBC) Count 11.6 10x3/uL (4.8-10.8)
[2023-10-06 04:45] LABS: Anion Gap 13 mmol/L (10-20); BUN (Urea Nitrogen) 18 mg/dL (9.8-20.1); Calc. Creatinine Clearance 54 mL/min (70-130); Calcium 8.4 mg/dL (7.8-10.44); Carbon Dioxide 17 mmol/L (23-31); Chloride 112 mmol/L (98-107); Estimated GFR 47; Glucose 148 mg/dL (83-110); Potassium 4.3 mmol/L (3.5-5.1); Sodium 138 mmol/L (136-145)
[2023-10-06] MEDS: Levothyroxine Sodium 100 MCG TAB PO SCH (05:50)
[2023-10-06] MEDS ORDERED: Dextrose 5% in Water 1,000 ML IV SCH (08:15)
[2023-10-06] MEDS: Pregabalin 75 MG CAP PO SCH ×2 (08:24→20:55)
[2023-10-06] MEDS: Famotidine/PF 20 mg/2ml Vial SLOW IVP SCH (08:24)
[2023-10-06] MEDS: Sodium Bicarbonate Tab 325 MG TAB PO SCH ×3 (08:25→20:55)
[2023-10-06] MEDS: Polyethylene Glycol 3350 17 GM Packet PO SCH (08:25)
[2023-10-06] MEDS: Aspirin Chewable 81 MG TAB PO SCH (08:25)
[2023-10-06] MEDS: HYDROcodone/Acetaminophen 5/325 mg Tablet PO PRN (08:31)
[2023-10-06] MEDS: Insulin Regular 300 UNITS/3 ML VIAL SC PRN ×5 (08:53→23:54)
[2023-10-06] MEDS ORDERED: Insulin Glargine 30 UNITS/0.3 ML VIAL SC PRN (11:47)
[2023-10-06] MEDS: Atorvastatin Calcium 10 MG TAB PO SCH (20:55)
[2023-10-07] MEDS: Guaifenesin DM 100-10/5 ML UDCUP PO PRN ×2 (02:11→17:38)
[2023-10-07 04:35] LABS: #Eosinphils 0.2 thou/uL (0.0-0.7); #Neutrophils 9.6 thou/uL (1.40-6.50); %Basophils 0.3 % (0.0-1.0); %Eosinophils 1.2 % (0.0-10.0); %Lymphocytes 14.9 % (21.0-51.0); %Monocytes 14.4 % (0.0-10.0); %Neutrophils 68.6 % (42.0-75.0); Hemoglobin 9.1 g/dL (12.0-16.0); Mean Corpuscular HGB CONC 33.7 g/dL (32.0-36.0); Mean Corpuscular Hemoglobin 30.5 pg (27.0-31.0); Mean Corpuscular Volume 90.6 fl (78.0-98.0); Platelet Count 123 10x3/uL (130-400); RBC Distribution Width 13.5 % (11.5-14.5); Red Blood Cell (RBC) Count 2.98 mill/uL (4.20-5.40); White Blood Cell (WBC) Count 14.1 10x3/uL (4.8-10.8)
[2023-10-07 04:58] LABS: Anion Gap 8 mmol/L (10-20); BUN (Urea Nitrogen) 19 mg/dL (9.8-20.1); Calc. Creatinine Clearance 55 mL/min (70-130); Calcium 8.1 mg/dL (7.8-10.44); Carbon Dioxide 23 mmol/L (23-31); Chloride 106 mmol/L (98-107); Estimated GFR 49; Glucose 150 mg/dL (83-110); Potassium 3.8 mmol/L (3.5-5.1); Sodium 133 mmol/L (136-145)
[2023-10-07] MEDS: Levothyroxine Sodium 100 MCG TAB PO SCH (05:39)
[2023-10-07] MEDS: Aspirin Chewable 81 MG TAB PO SCH (07:59)
[2023-10-07] MEDS: Acetaminophen 325 MG TAB PO PRN ×2 (07:59→21:07)
[2023-10-07] MEDS: Sodium Bicarbonate Tab 325 MG TAB PO SCH ×2 (08:00→14:45)
[2023-10-07] MEDS: Pregabalin 75 MG CAP PO SCH ×2 (08:00→21:08)
[2023-10-07] MEDS: Insulin Regular 300 UNITS/3 ML VIAL SC PRN ×3 (08:00→17:16)
[2023-10-07] MEDS: Famotidine/PF 20 mg/2ml Vial SLOW IVP SCH (08:01)
[2023-10-07] MEDS: Polyethylene Glycol 3350 17 GM Packet PO SCH (08:01)
[2023-10-07] MEDS: Atorvastatin Calcium 10 MG TAB PO SCH (21:08)
[2023-10-08 05:07] LABS: #Eosinphils 0.5 thou/uL (0.0-0.7); #Monocytes 1.5 thou/uL (0.11-0.59); #Neutrophils 6.5 thou/uL (1.40-6.50); %Basophils 0.2 % (0.0-1.0); %Eosinophils 4.3 % (0.0-10.0); %Lymphocytes 22.1 % (21.0-51.0); %Monocytes 13.8 % (0.0-10.0); Hematocrit 25.9 % (36.0-47.0); Hemoglobin 8.7 g/dL (12.0-16.0); Mean Corpuscular HGB CONC 33.6 g/dL (32.0-36.0); Mean Corpuscular Hemoglobin 30.3 pg (27.0-31.0); Mean Corpuscular Volume 90.2 fl (78.0-98.0); Mean Platelet Volume 11.6 fL (7.4-10.4); Platelet Count 119 10x3/uL (130-400); RBC Distribution Width 13.3 % (11.5-14.5); Red Blood Cell (RBC) Count 2.87 mill/uL (4.20-5.40)
[2023-10-08 05:24] LABS: Anion Gap 11 mmol/L (10-20); BUN (Urea Nitrogen) 18 mg/dL (9.8-20.1); Calc. Creatinine Clearance 61 mL/min (70-130); Calcium 8.4 mg/dL (7.8-10.44); Carbon Dioxide 21 mmol/L (23-31); Chloride 108 mmol/L (98-107); Estimated GFR 55; Glucose 125 mg/dL (83-110); Sodium 136 mmol/L (136-145)
[2023-10-08] MEDS: Levothyroxine Sodium 100 MCG TAB PO SCH (05:32)
[2023-10-08] MEDS: Acetaminophen 325 MG TAB PO PRN ×2 (06:05→20:26)
[2023-10-08] MEDS: Insulin Regular 300 UNITS/3 ML VIAL SC PRN ×5 (06:06→20:37)
[2023-10-08] MEDS: Guaifenesin DM 100-10/5 ML UDCUP PO PRN ×2 (06:06→19:22)
[2023-10-08] MEDS: Pregabalin 75 MG CAP PO SCH ×2 (08:05→20:25)
[2023-10-08] MEDS: Polyethylene Glycol 3350 17 GM Packet PO SCH (08:05)
[2023-10-08] MEDS: Famotidine/PF 20 mg/2ml Vial SLOW IVP SCH (08:05)
[2023-10-08] MEDS: Aspirin Chewable 81 MG TAB PO SCH (08:05)
[2023-10-08] MEDS ORDERED: Mineral Oil ENEMA PR PRN (08:17)
[2023-10-08] MEDS ORDERED: Artificial Tear Sol 15 ML BOT EA EYE PRN (08:17)
[2023-10-08] MEDS ORDERED: Nitroglycerin 0.4 MG TAB (25 Tab Bottle) SL PRN (08:17)
[2023-10-08] MEDS ORDERED: Potassium Chloride 20 MEQ TAB PO SCH (08:17)
[2023-10-08] MEDS ORDERED: Glucagon 1 MG/ML KIT SC PRN (08:30)
[2023-10-08] MEDS ORDERED: HUMULIN R 100 UNITS, Admixture Fee 1 EACH in Sodium Chloride 0.9% 100 ML IVPB SCH (08:30)
[2023-10-08] MEDS ORDERED: Dextrose 5% in Water 1,000 ML IV PRN (08:30)
[2023-10-08] MEDS ORDERED: Dextrose 50% Abboject 50 ML SYRINGE SLOW IVP PRN (08:30)
[2023-10-08] MEDS: Furosemide 40 MG TAB PO SCH ×2 (08:56→20:26)
[2023-10-08] MEDS: Aspirin 325 mg Enteric Coated Tablet PO SCH ×2 (08:56→09:29)
[2023-10-08] MEDS: Famotidine 20 MG TAB PO SCH ×2 (09:01→20:26)
[2023-10-08] MEDS ORDERED: Aspirin Chewable 81 MG TAB PO SCH (09:15)
[2023-10-08] MEDS: Atorvastatin Calcium 10 MG TAB PO SCH (20:26)
[2023-10-09 05:28] LABS: #Eosinphils 0.8 thou/uL (0.0-0.7); #Monocytes 1.1 thou/uL (0.11-0.59); #Neutrophils 5.4 thou/uL (1.40-6.50); %Basophils 0.2 % (0.0-1.0); %Eosinophils 8.4 % (0.0-10.0); %Lymphocytes 19.2 % (21.0-51.0); %Monocytes 12.1 % (0.0-10.0); %Neutrophils 59.7 % (42.0-75.0); Hematocrit 26.5 % (36.0-47.0); Hemoglobin 8.9 g/dL (12.0-16.0); Mean Corpuscular HGB CONC 33.6 g/dL (32.0-36.0); Mean Corpuscular Hemoglobin 30.3 pg (27.0-31.0); Mean Corpuscular Volume 90.1 fl (78.0-98.0); Mean Platelet Volume 11.2 fL (7.4-10.4); Platelet Count 145 10x3/uL (130-400); RBC Distribution Width 13.3 % (11.5-14.5); Red Blood Cell (RBC) Count 2.94 mill/uL (4.20-5.40); White Blood Cell (WBC) Count 9.1 10x3/uL (4.8-10.8)
[2023-10-09] MEDS: Levothyroxine Sodium 100 MCG TAB PO SCH (05:50)
[2023-10-09 05:51] LABS: Anion Gap 11 mmol/L (10-20); BUN (Urea Nitrogen) 23 mg/dL (9.8-20.1); Calc. Creatinine Clearance 53 mL/min (70-130); Calcium 8.4 mg/dL (7.8-10.44); Carbon Dioxide 22 mmol/L (23-31); Chloride 108 mmol/L (98-107); Estimated GFR 46; Glucose 130 mg/dL (83-110); Potassium 3.8 mmol/L (3.5-5.1); Sodium 137 mmol/L (136-145)
[2023-10-09] MEDS: Insulin Regular 300 UNITS/3 ML VIAL SC PRN ×4 (05:51→22:22)
[2023-10-09] MEDS ORDERED: Insulin Glargine 30 UNITS/0.3 ML VIAL SC PRN (08:25)
[2023-10-09] MEDS: Aspirin 325 mg Enteric Coated Tablet PO SCH (08:49)
[2023-10-09] MEDS: Furosemide 40 MG TAB PO SCH ×2 (08:50→22:22)
[2023-10-09] MEDS: Potassium Chloride 20 MEQ TAB PO SCH (08:50)
[2023-10-09] MEDS: Pregabalin 75 MG CAP PO SCH ×2 (08:50→22:21)
[2023-10-09] MEDS: Famotidine 20 MG TAB PO SCH ×2 (08:50→22:20)
[2023-10-09] MEDS: Polyethylene Glycol 3350 17 GM Packet PO SCH (08:50)
[2023-10-09] MEDS: Acetaminophen 325 MG TAB PO PRN ×2 (08:50→22:21)
[2023-10-09] MEDS: Diphenoxylate HCl/Atropine Tablet PO PRN (13:27)
[2023-10-09] MEDS: diphenhydrAMINE 50 MG CAP PO PRN ×2 (17:35→22:20)
[2023-10-09] MEDS: Guaifenesin DM 100-10/5 ML UDCUP PO PRN (19:57)
[2023-10-09] MEDS: Atorvastatin Calcium 10 MG TAB PO SCH (22:20)
[2023-10-10] MEDS: Levothyroxine Sodium 100 MCG TAB PO SCH (06:48)
[2023-10-10] MEDS: Furosemide 40 MG TAB PO SCH ×2 (08:27→21:26)
[2023-10-10] MEDS: Famotidine 20 MG TAB PO SCH (08:27)
[2023-10-10] MEDS: Aspirin 325 mg Enteric Coated Tablet PO SCH (08:27)
[2023-10-10] MEDS: Guaifenesin DM 100-10/5 ML UDCUP PO PRN ×2 (08:27→19:20)
[2023-10-10] MEDS: Acetaminophen 325 MG TAB PO PRN ×2 (08:28→18:33)
[2023-10-10] MEDS: Potassium Chloride 20 MEQ TAB PO SCH (08:28)
[2023-10-10] MEDS: Pregabalin 75 MG CAP PO SCH ×2 (08:28→21:26)
[2023-10-10] MEDS: Insulin Regular 300 UNITS/3 ML VIAL SC PRN ×2 (13:02→21:55)
[2023-10-10] MEDS: Atorvastatin Calcium 10 MG TAB PO SCH (21:26)
[2023-10-11] MEDS: Levothyroxine Sodium 100 MCG TAB PO SCH (05:35)
[2023-10-11] MEDS: Pregabalin 75 MG CAP PO SCH ×2 (09:00→20:52)
[2023-10-11] MEDS: Furosemide 40 MG TAB PO SCH (09:01)
[2023-10-11] MEDS: Famotidine 20 MG TAB PO SCH (09:02)
[2023-10-11] MEDS: Aspirin 325 mg Enteric Coated Tablet PO SCH (09:02)
[2023-10-11] MEDS: Potassium Chloride 20 MEQ TAB PO SCH (09:03)
[2023-10-11] MEDS: Insulin Regular 300 UNITS/3 ML VIAL SC PRN ×3 (12:26→20:54)
[2023-10-11] MEDS: Guaifenesin DM 100-10/5 ML UDCUP PO PRN ×2 (12:29→20:52)
[2023-10-11] MEDS: Diphenoxylate HCl/Atropine Tablet PO PRN (15:15)
[2023-10-11] MEDS: Atorvastatin Calcium 10 MG TAB PO SCH (20:53)
[2023-10-11] MEDS: Acetaminophen 325 MG TAB PO PRN (20:56)
[2023-10-12] MEDS: Levothyroxine Sodium 100 MCG TAB PO SCH (05:30)
[2023-10-12] MEDS: Insulin Regular 300 UNITS/3 ML VIAL SC PRN (05:33)
[2023-10-12] MEDS: Pregabalin 75 MG CAP PO SCH ×2 (08:01→20:59)
[2023-10-12] MEDS: Famotidine 20 MG TAB PO SCH (08:11)
[2023-10-12] MEDS: Aspirin 325 mg Enteric Coated Tablet PO SCH (08:11)
[2023-10-12 09:16] VITALS: BMI 34.5
[2023-10-12 12:57] LABS: Analyzer IN Cardio OR; Base Excess (BEa) -5.3 mEq/L (-2.0 to +3.0); CO2 Tension 37.8 mmHg (35.0-45.0); Calcium, Ionized (arterial) 1.02 mmol/L (1.12-1.30); Carboxyhemoglobin (COHb) 0.1 gm% (0.0-3.0); Hematocrit-ABG 22 % (36.0-47.0); Hemoglobin (Hb) 7.4 g/dL (12.0-16.0); O2 Tension (PaO2), arterial 459.8 mmHg (> 60.0); Potassium - ABG Lab 5.37 mmol/L (3.70-5.30); pH, Arterial 7.341 (7.35-7.45)
[2023-10-12 12:57] LABS: Analyzer IN Cardio OR; Base Excess (BEa) -5.3 mEq/L (-2.0 to +3.0); CO2 Tension 38.3 mmHg (35.0-45.0); Calcium, Ionized (arterial) 1.45 mmol/L (1.12-1.30); Carboxyhemoglobin (COHb) 1.3 gm% (0.0-3.0); Hematocrit-ABG 22 % (36.0-47.0); Hemoglobin (Hb) 7.4 g/dL (12.0-16.0); O2 Tension (PaO2), arterial 230.5 mmHg (> 60.0); Potassium - ABG Lab 4.94 mmol/L (3.70-5.30); pH, Arterial 7.336 (7.35-7.45)
[2023-10-12 12:57] LABS: Actual Bicarbonate (HCO3a) 20.2 mEq/L (22-28); Analyzer IN Cardio OR; Base Excess (BEa) -5.3 mEq/L (-2.0 to +3.0); CO2 Tension 39.1 mmHg (35.0-45.0); Carboxyhemoglobin (COHb) 0.4 gm% (0.0-3.0); Hematocrit-ABG 29 % (36.0-47.0); Hemoglobin (Hb) 9.8 g/dL (12.0-16.0); O2 Tension (PaO2), arterial 155.7 mmHg (> 60.0); Potassium - ABG Lab 4.72 mmol/L (3.70-5.30); pH, Arterial 7.331 (7.35-7.45)
[2023-10-12 12:58] LABS: Actual Bicarbonate (HCO3a) 19.8 mEq/L (22-28); Analyzer IN Cardio OR; Base Excess (BEa) -6.2 mEq/L (-2.0 to +3.0); CO2 Tension 41.5 mmHg (35.0-45.0); Calcium, Ionized (arterial) 1.15 mmol/L (1.12-1.30); Carboxyhemoglobin (COHb) 0.3 gm% (0.0-3.0); Hematocrit-ABG 31 % (36.0-47.0); Hemoglobin (Hb) 10.4 g/dL (12.0-16.0); Potassium - ABG Lab 4.18 mmol/L (3.70-5.30); pH, Arterial 7.297 (7.35-7.45)
[2023-10-12 12:58] LABS: Actual Bicarbonate (HCO3a) 20.9 mEq/L (22-28); Analyzer IN Cardio OR; Base Excess (BEa) -3.8 mEq/L (-2.0 to +3.0); CO2 Tension 36.5 mmHg (35.0-45.0); Carboxyhemoglobin (COHb) 0.3 gm% (0.0-3.0); Hematocrit-ABG 34 % (36.0-47.0); Hemoglobin (Hb) 11.6 g/dL (12.0-16.0); O2 Tension (PaO2), arterial 187.7 mmHg (> 60.0); Puncture Site Arterial Line; pH, Arterial 7.375 (7.35-7.45)
[2023-10-12 12:59] LABS: Puncture Site Arterial Line
[2023-10-12 12:59] LABS: Puncture Site Arterial Line
[2023-10-12 12:59] LABS: Puncture Site Arterial Line
[2023-10-12 13:00] LABS: Calcium, Ionized (arterial) 1.65 mmol/L (1.12-1.30); Puncture Site Arterial Line
[2023-10-12] MEDS ORDERED: Loratadine 10 MG TAB PO PRN (18:11)
[2023-10-12] MEDS ORDERED: Furosemide 40 MG TAB PO SCH (18:30)
[2023-10-12] MEDS ORDERED: Loratadine 10 MG TAB PO SCH (18:30)
[2023-10-12] MEDS ORDERED: Benzonatate 100 MG CAP PO SCH (18:30)
[2023-10-12] MEDS: Atorvastatin Calcium 10 MG TAB PO SCH (20:58)
[2023-10-12] MEDS: Acetaminophen 325 MG TAB PO PRN (21:00)
[2023-10-13] MEDS: Insulin Regular 300 UNITS/3 ML VIAL SC PRN (00:31)
[2023-10-13] MEDS: Benzonatate 100 MG CAP PO SCH ×3 (00:33→12:17)
[2023-10-13 04:55] LABS: #Eosinphils 0.7 thou/uL (0.0-0.7); #Monocytes 1.1 thou/uL (0.11-0.59); #Neutrophils 4.7 thou/uL (1.40-6.50); %Basophils 0.2 % (0.0-1.0); %Eosinophils 7.9 % (0.0-10.0); %Lymphocytes 25.2 % (21.0-51.0); %Monocytes 12.9 % (0.0-10.0); %Neutrophils 53.1 % (42.0-75.0); Hematocrit 27.8 % (36.0-47.0); Hemoglobin 9.3 g/dL (12.0-16.0); Mean Corpuscular HGB CONC 33.5 g/dL (32.0-36.0); Mean Corpuscular Hemoglobin 30.1 pg (27.0-31.0); Mean Platelet Volume 10.4 fL (7.4-10.4); Platelet Count 263 10x3/uL (130-400); RBC Distribution Width 13.2 % (11.5-14.5); Red Blood Cell (RBC) Count 3.09 mill/uL (4.20-5.40); White Blood Cell (WBC) Count 8.8 10x3/uL (4.8-10.8)
[2023-10-13 05:20] LABS: Anion Gap 12 mmol/L (10-20); BUN (Urea Nitrogen) 21 mg/dL (9.8-20.1); Calc. Creatinine Clearance 53 mL/min (70-130); Calcium 8.5 mg/dL (7.8-10.44); Carbon Dioxide 26 mmol/L (23-31); Chloride 103 mmol/L (98-107); Estimated GFR 48; Glucose 109 mg/dL (83-110); Potassium 3.4 mmol/L (3.5-5.1); Sodium 138 mmol/L (136-145)
[2023-10-13] MEDS: Levothyroxine Sodium 100 MCG TAB PO SCH (05:50)
[2023-10-13] MEDS ORDERED: Furosemide 20 MG TAB PO SCH (07:00)
[2023-10-13] MEDS: Famotidine 20 MG TAB PO SCH (07:42)
[2023-10-13] MEDS: Aspirin 325 mg Enteric Coated Tablet PO SCH (07:43)
[2023-10-13] MEDS: Pregabalin 75 MG CAP PO SCH (07:43)
[2023-10-13] MEDS ORDERED: Potassium Chloride 20 MEQ TAB PO SCH (08:00)
[2023-10-13] MEDS ORDERED: Losartan 25 MG TAB PO SCH (09:00)
[2023-10-13] MEDS ORDERED: Loratadine 10 MG TAB PO SCH (09:00)
[2023-10-13 13:55] VITALS: TEMP 98.2
[2023-10-13 14:03] VITALS: BP 131/63
== END 2023-10-13 18:10 | disposition swing bed (61) | DRG 236 ==
LOC: EDSTATUS 09-28 09:30 → SURG A 10-05 06:05 → CCU 10-05 11:01 → 2NO 10-07 19:18
PROVIDERS: ADMIT Thoracic Surgery (Cardiothoracic Vascular Surgery); ATTEND Thoracic Surgery (Cardiothoracic Vascular Surgery)
PROC: 02100Z9 Bypass Coronary Artery, One Artery from Left Internal Mammary, Open Approach (ICD-10-PCS; principal; 2023-10-05)
PROC: 021009W Bypass Coronary Artery, One Artery from Aorta with Autologous Venous Tissue, Open Approach (ICD-10-PCS; 2023-10-05)
PROC: 06BN4ZZ Excision of Left Femoral Vein, Percutaneous Endoscopic Approach (ICD-10-PCS; 2023-10-05)
PROC: 02L70CK Occlusion of Left Atrial Appendage with Extraluminal Device, Open Approach (ICD-10-PCS; 2023-10-05)
PROC: 5A1221Z Performance of Cardiac Output, Continuous (ICD-10-PCS; 2023-10-05)
PROC: 4A133R1 Monitoring of Arterial Saturation, Peripheral, Percutaneous Approach (ICD-10-PCS; 2023-10-05)
PROC: 5A09357 Assistance with Respiratory Ventilation, Less than 24 Consecutive Hours, Continuous Positive Airway Pressure (ICD-10-PCS; 2023-10-08)
DX: I25.110 Atherosclerotic heart disease of native coronary artery with unstable angina pectoris (principal); E87.20 Acidosis, unspecified; D64.9 Anemia, unspecified; R19.7 Diarrhea, unspecified; I10 Essential (primary) hypertension; E78.5 Hyperlipidemia, unspecified; E11.9 Type 2 diabetes mellitus without complications; G47.30 Sleep apnea, unspecified; Z96.653 Presence of artificial knee joint, bilateral; Z98.890 Other specified postprocedural states; Z82.49 Family history of ischemic heart disease and other diseases of the circulatory system; Z83.3 Family history of diabetes mellitus
CPT/HCPCS: 36415; 36416; 36430; 71045; 80048; 82805; 85025; 85027; 85610; 85730; 86850; 86900; 86901; 93005; 93010; 93798; 94002; 94150; A4311; C1751; J1580; J1644; J1815; J2001; J2150; J2250; J2440; J2704; J2720; J3010; J3370; J3370-JW; J3475; J3480; J3490; J7070; P9045; S0017; S0028

== ENCOUNTER 2023-09-27 12:55 | Outpatient (CLI) | payer MEDICARE | END 2023-09-27 12:56 | disposition home or self-care (01) | LOC: LABBT 12:55 | PROVIDERS: ATTEND Thoracic Surgery (Cardiothoracic Vascular Surgery) | DX: Z53.9 Procedure and treatment not carried out, unspecified reason (principal); I25.10 Atherosclerotic heart disease of native coronary artery without angina pectoris | CPT/HCPCS: 80048; 85027; 86850; 86900; 86901 ==

== ENCOUNTER 2023-10-04 13:29 | Outpatient (CLI) | payer MEDICARE | END 2023-10-04 13:30 | disposition home or self-care (01) | LOC: LABBT 13:29 | PROVIDERS: ATTEND Thoracic Surgery (Cardiothoracic Vascular Surgery) | DX: Z01.810 Encounter for preprocedural cardiovascular examination (principal); I25.10 Atherosclerotic heart disease of native coronary artery without angina pectoris | CPT/HCPCS: 86850; 86900; 86901; 93005; 93010 ==